=== PATIENT | female | born 1965 | race Caucasian/White ===

== ENCOUNTER 2017-03-13 18:28 | Emergency (ER) | payer OTHER ==
[~2017-03-13] VITALS: Ht 167.6 cm; Wt 72.6 kg
[2017-03-13 18:34] VITALS: Ht 167.6 cm; Wt 72.6 kg
[2017-03-13 20:59] VITALS: BP 138/75
== END 2017-03-13 20:59 | disposition home or self-care (01) ==
LOC: ED 18:28
DX: S52.121A Displaced fracture of head of right radius, initial encounter for closed fracture (principal); W01.0XXA Fall on same level from slipping, tripping and stumbling without subsequent striking against object, initial encounter; Y93.89 Activity, other specified; Y92.89 Other specified places as the place of occurrence of the external cause; Y99.8 Other external cause status